=== PATIENT | male | born 1985 | race Two or more races ===

== ENCOUNTER 2017-03-13 18:53 | Emergency (ER) | payer SELFPAY ==
[~2017-03-13] VITALS: Ht 170.2 cm; Wt 68.0 kg
[2017-03-13 19:39] VITALS: BP 125/97
== END 2017-03-13 21:00 | disposition left against medical advice (07) ==
LOC: EDBD 18:53 → ER 18:53
DX: F10.120 Alcohol abuse with intoxication, uncomplicated (principal); Z53.21 Procedure and treatment not carried out due to patient leaving prior to being seen by health care provider